=== PATIENT | male | born 1965 | race Caucasian/White ===

== ENCOUNTER 2017-05-03 18:58 | Emergency (ER) | payer OTHER ==
[~2017-05-03] VITALS: Ht 177.8 cm; Wt 65.1 kg
[~2017-05-03 18:58] MED LIST: DOXY100T PO; SULF1TAB47 PO; TRAM50 PO
[2017-05-03 19:07] VITALS: BP 116/67; PULSE 74; RESP 20; TEMP 98.5; O2SAT 98
--- NOTE | 2017-05-03 19:47 | PD ---
HPI Chief Complaint: Skin Problem Time Seen by Provider: 19:20 Travel History International Travel<30 days: No Contact w/Intl Traveler<30days: No Traveled to known affect area: No History of Present Illness HPI Patient's 51 years old. He arrives with about 5 days of rash involving the palm soles dorsal feet dorsal hands and about the groin and trunk. Additionally he reports a low-grade fever and some generalized malaise. Onset gradual. The rash is not itchy however it is somewhat painful. He also notes some vesicular-type lesions involving oropharyngeal mucosa and tongue. He denies sick contacts. No chest pain or shortness of breath. No recent travel. PFSH Past Medical History Diminished Hearing: No Immunizations Current: No Influenza Vaccination: No Social History Alcohol Use: Yes (QUIT IN FEBRUARY 2017) Tobacco Use: Yes (1 ppd) Substance Use: No Allergies-Medications (Allergen,Severity, Reaction): Coded Allergies: Bee Sting (Verified Allergy, Severe, swelling, 05/03/17) Reported Meds & Prescriptions Reported Meds & Active Scripts Active Review of Systems Except as stated in HPI: all other systems reviewed are Neg General / Constitutional: Positive: Fever Skin: Positive Rash, Positive Lesions, No Itching Physical Exam Narrative GENERAL: 51-year-old male well-nourished well-developed pleasant SKIN: Focused skin assessment warm/dry. Blanching maculopapular lesions about the dorsal feet and hands as well as a soles and palms. Rash extends into about the trunk. HEAD: Atraumatic. Normocephalic. EYES: Pupils equal and round. No scleral icterus. No injection or drainage. ENT: No nasal bleeding or discharge. Mucous membranes pink and moist. Occasional ulcerative type lesions involving the tongue and oral mucosa. NECK: Trachea midline. No JVD. CARDIOVASCULAR: Regular rate and rhythm. No murmur appreciated. RESPIRATORY: No accessory muscle use. Clear to auscultation. Breath sounds equal bilaterally. GASTROINTESTINAL: Abdomen soft, non-tender, nondistended. Hepatic and splenic margins not palpable. MUSCULOSKELETAL: No obvious deformities. No clubbing. No cyanosis. No edema. NEUROLOGICAL: Awake and alert. No obvious cranial nerve deficits. Motor grossly within normal limits. Normal speech. PSYCHIATRIC: Appropriate mood and affect; insight and judgment normal. Data Data Last Documented VS Vital Signs Date Time Temp Pulse Resp B/P Pulse Ox O2 Delivery O2 Flow Rate FiO2 05/03/17 20:57 65 20 114/74 98 05/03/17 19:07 98.5 Vital signs reviewed MDM Medical Decision Making Medical Screen Exam Complete: Yes Emergency Medical Condition: Yes Medical Record Reviewed: Yes Differential Diagnosis Doqx-bqcd-hbg-mouth disease, syphilis, Becker spotted fever, chickenpox , urticaria Narrative Course Overall the presentation is considered most keeping with a kekd-szmq-ptl-mouth disease syndrome despite his age. Numerous additional cases have been seen as of late. Patient reassured. Return precautions discussed. He is ready for discharge. Diagnosis Primary Impression: Hand, foot and mouth disease Referrals: Primary Care Physician as needed Additional Instructions: You have a choice when it comes to health care, and we are glad that you chose [facility]. Hopefully, we have met your expectations on today's visit. You are welcome to return to [facility] at any time, as we are committed to meeting the health care needs of our community. Med/Other Pt SpecificInfo: No Change to Meds Disposition: 01 DISCHARGE HOME Condition: Brandon Estrada MD May 03, 2017 19:47
[2017-05-03 20:57] VITALS: BP 114/74
== END 2017-05-03 21:00 | disposition home or self-care (01) ==
LOC: PHED 18:58
DX: B08.4 Enteroviral vesicular stomatitis with exanthem (principal); F17.210 Nicotine dependence, cigarettes, uncomplicated
CPT/HCPCS: 99281